=== PATIENT | male | born 1955 | race Caucasian/White ===

== ENCOUNTER → 2017-10-12 | Outpatient (REF) | payer OTHER ==
[2017-10-12 13:51] LABS: BASO % 0.4 % (0.0-1.0); EOS # 0.2 10^3/uL (0.0-0.50); EOS % 2.7 % (0.0-3.0); HEMATOCRIT 45.6 % (42.0-52.0); HEMOGLOBIN 15.6 g/dl (13.5-17.5); IMMATURE GRANULOCYTE % 0.5 % (0-3.0); LYMPH # 2.4 10^3/uL (1.5-4.5); LYMPH % 31.3 % (24.0-44.0); MEAN CORPUSCULAR HEMOGLOBIN 29.5 pg (27.0-33.0); MEAN CORPUSCULAR HGB CONC 34.2 g/dl (32.0-36.5); MEAN CORPUSCULAR VOLUME 86.4 fl (80.0-96.0); MONO # 0.5 10^3/uL (0.0-0.8); MONO % 6.5 % (0.0-5.0); NEUTROPHILS # 4.5 10^3/uL (1.8-7.7); NEUTROPHILS % 58.6 % (36.0-66.0); PLATELET COUNT, AUTOMATED 259 10^3/uL (150-450); RED BLOOD COUNT 5.28 10^6/uL (4.30-6.10); RED CELL DISTRIBUTION WIDTH 12.9 % (11.5-14.5); WHITE BLOOD COUNT 7.7 10^3/uL (4.0-10.0)
[2017-10-12 14:12] LABS: ALBUMIN 3.5 GM/DL (3.2-5.2); ALBUMIN/GLOBULIN RATIO 0.92 (1.00-1.93); ALKALINE PHOSPHATASE 74 U/L (45-117); ALT/SGPT 45 U/L (12-78); ANION GAP 8 MEQ/L (8-16); AST/SGOT 23 U/L (7-37); BILIRUBIN,TOTAL 0.7 MG/DL (0.2-1.0); BLOOD UREA NITROGEN 12 MG/DL (7-18); CALCIUM LEVEL 7.1 MG/DL (8.8-10.2); CARBON DIOXIDE LEVEL 28 MEQ/L (21-32); CHLORIDE LEVEL 106 MEQ/L (98-107); CREATININE FOR GFR 0.91 MG/DL (0.70-1.30); GLOMERULAR FILTRATION RATE > 60.0 (>49); GLUCOSE, FASTING 121 MG/DL (70-100); POTASSIUM SERUM 4.5 MEQ/L (3.5-5.1); RHEUMATOID FACTOR QUANT < 10.0 IU/ML (<15.0); SODIUM LEVEL 142 MEQ/L (136-145); THYROID STIMULATING HORMONE 0.624 uIU/ML (0.358-3.740); TOTAL PROTEIN 7.3 GM/DL (6.4-8.2)
[2017-10-12 14:20] LABS: VITAMIN B12 LEVEL 856 PG/ML
[2017-10-12 14:21] LABS: FOLATE > 24.0 NG/ML
[2017-10-12 14:42] LABS: ERYTHROCYTE SEDIMENTATION RATE 5 mm/hr (0-20)
[2017-10-16 00:07] LABS: VITAMIN E(ALPHA TOCOPHEROL) 17.4 mg/L (9.0-29.0); VITAMIN E(GAMMA TOCOPHEROL) 1.3 mg/L (0.5-4.9)
[2017-10-16 08:44] LABS: ANCA-ATYPICAL <1:20 titer (Neg:<1:20); ANTI DOUBLE STRAND-DNA AB 3 IU/mL (0-9); ANTINUCLEAR ANTIBODIES DIRECT Negative (Negative); COPPER PLASMA 94 ug/dL (72-166); CYTOPLASMIC NEUTROP AB ANCA-C <1:20 titer (Neg:<1:20); LEAD BLOOD ADULT 2 ug/dL (0-19); MERCURY LEVEL None Detected ug/L (0.0-14.9); PERINUCLEAR AB ANCA-P <1:20 titer (Neg:<1:20); SJOGREN'S ANTI SS-A <0.2 AI (0.0-0.9); SJOGREN'S ANTI SS-B <0.2 AI (0.0-0.9)
[2017-10-16 10:05] LABS: DRVV SCREEN 39.5 SEC
[2017-10-16 10:12] LABS: PTT LUPUS TYPE ANTICOAG SCREEN 0.9 (0-1.2)
[2017-10-17 08:06] LABS: CERULOPLASMIN 23.8 mg/dL (16.0-31.0); VITAMIN B1 LEVEL WHOLE BLOOD 191.7 nmol/L (66.5-200.0); VITAMIN B6,PYRIDOXAL PHOSPHATE 33.8 ug/L (5.3-46.7)
== END ==
LOC: M LABNEURO 10:15
DX: G62.9 Polyneuropathy, unspecified (principal)

== ENCOUNTER → 2019-08-25 | Outpatient (REF) ==
--- NOTE | 2019-08-31 13:40 | SLEEPHOME ---
DATE OF STUDY: 08/25/2019 ORDERED BY: Nate Ward Diagnostic home sleep testing was performed due to concern for the obstructive sleep apnea syndrome. For testing, a nocturnal T3 respiratory monitoring device was used. Continuous record was made of pulse, oxygen saturation, airflow, chest and abdominal strain and body position. 6 hours and 59 minutes of data were reviewed. There were 6 hours and 59 minutes marked as time in bed. During the interval marked time in bed, there were 197 respiratory events identified of 10 seconds in duration or greater for a respiratory event index of 28.1 per hour. The events were more frequently obstructive, however, 14 mixed and central apneas were seen. Baseline pulse rate was 73 per minute, pulse rate ranged 61-97. Baseline saturation was 94%, saturations fell as low as 75%, with an oxygen desaturation index of 29. The study was performed in both the supine and nonsupine positions. IMPRESSION: Abnormal home sleep testing with repetitive respiratory events and oxygen desaturations to 75% is consistent with the obstructive sleep apnea syndrome, and possibly complex obstructive sleep apnea syndrome in light of central events. RECOMMENDATION: The patient should consider referral for formal sleep evaluation as treatment of complex obstructive sleep apnea syndrome can be equally as complex.
== END ==
LOC: M SLEEP HO 10:00
DX: G47.33 Obstructive sleep apnea (adult) (pediatric) (principal)